=== PATIENT | female | born 1945 | race African-American/Black ===

== ENCOUNTER 2019-09-29 11:02 | Inpatient (IN) | payer MEDICARE ==
[~2019-09-29] VITALS: Ht 165.1 cm; Wt 96.8 kg
[~2019-09-29 11:02] MED LIST: ALLO300T2 PO; ASPI-1393 PO; ATOR20TA65 PO; ERGO500013 PO; NITR0.4T49 SL; OMEP40CA34 PO; POTA8TAB4 PO
[2019-09-29] MEDS ORDERED: ASPIRIN 81MG TABLET PO ONE (11:45)
[2019-09-29 11:57] LABS: BASOPHILS % 0.9 % (0.0-2.0); EOSINOPHILS % 1.8 % (0.0-5.0); HEMATOCRIT. 36.6 % (36.0-48.0); HEMOGLOBIN. 12.6 g/dL (12.0-16.0); LYMPHOCYTES % 19.5 % (20.0-50.0); MEAN CORPUSCULAR HEMOGLOBIN 33.3 pg (28.0-32.0); MEAN CORPUSCULAR VOLUME 96.8 fL (81.0-99.0); MEAN PLATELET VOLUME 9.1 fl (7.4-10.4); MONOCYTES % 4.6 % (2.0-8.0); NEUTROPHILS % 73.2 % (40.0-76.0); PLATELET 182 x1000/uL (130-400); RED BLOOD CELL COUNT 3.78 mill/uL (4.2-5.4)
[2019-09-29 12:03] LABS: CHLORIDE 109 mEq/L (98-107)
[2019-09-29 12:05] LABS: INR 1.1; PARTIAL THROMBOPLASTIN TIME 28.1 sec (23.4-31.0); PROTHROMBIN TIME 10.8 sec (9.6-11.0)
[2019-09-29] MEDS ORDERED: ENOXAPARIN 80MG/0.8ML SYR SUBCUT ONE (14:15)
[2019-09-29] MEDS ORDERED: NITROGLYCERIN OINT 1GM/INCH UDPKT TD ONE (14:15)
[2019-09-29] MEDS ORDERED: POTASSIUM CHLORIDE 20MEQ TABLET SR PO ONE (15:00)
[2019-09-29] MEDS ORDERED: CLONIDINE 0.1MG TABLET PO PRN (15:00)
[2019-09-29] MEDS ORDERED: HYDROCODONE/ACETAMINOPHEN 5/325MG TABLET PO PRN (16:15)
[2019-09-29] MEDS ORDERED: ONDANSETRON HCL 4MG/2ML INJ IV PRN (16:15)
[2019-09-29] MEDS ORDERED: IPRATROPIUM/ALBUTEROL 0.5-3(2.5)MG/3ML NEB NEB PRN (16:15)
[2019-09-29] MEDS ORDERED: ACETAMINOPHEN 325MG TABLET PO PRN (16:15)
[2019-09-29 21:00] VITALS: BP 143/69
[2019-09-29] MEDS: ATORVASTATIN CALCIUM 20MG TABLET PO SCH (22:35)
[2019-09-29] MEDS: AMLODIPINE 2.5MG TABLET PO SCH (22:35)
[2019-09-29] MEDS: ENOXAPARIN 30MG/0.3ML SYR SUBCUT SCH (22:36)
[2019-09-30] VITALS (16 sets, daily range): BP systolic 112–149; BP diastolic 58–91
[2019-09-30 00:25] LABS: CREATINE KINASE 103 IU/L (26-192)
[2019-09-30 00:26] LABS: CREATINE KINASE MB FRACTION 1.2 ng/mL (0.5-3.6)
[2019-09-30] MEDS: NITROGLYCERIN OINT 1GM/INCH UDPKT TD SCH ×2 (06:00→18:00)
[2019-09-30] MEDS ORDERED: SODIUM CHLORIDE 0.45% 1,000 ML IV SCH (07:00)
[2019-09-30 07:09] LABS: BASOPHILS % 1.1 % (0.0-2.0); EOSINOPHILS % 1.8 % (0.0-5.0); HEMOGLOBIN. 12.7 g/dL (12.0-16.0); LYMPHOCYTES % 21.6 % (20.0-50.0); MEAN CORPUSCULAR HEMOGLOBIN 32.8 pg (28.0-32.0); MEAN CORPUSCULAR VOLUME 95.4 fL (81.0-99.0); MEAN PLATELET VOLUME 10.2 fl (7.4-10.4); MONOCYTES % 5.8 % (2.0-8.0); NEUTROPHILS % 69.7 % (40.0-76.0); PLATELET 166 x1000/uL (130-400); RED BLOOD CELL COUNT 3.88 mill/uL (4.2-5.4)
[2019-09-30 08:01] LABS: CHLORIDE 107 mEq/L (98-107)
[2019-09-30 08:13] LABS: T4 FREE 1.11 ng/dL (0.76-1.46)
[2019-09-30 08:14] LABS: CREATINE KINASE MB FRACTION 1.4 ng/mL (0.5-3.6)
[2019-09-30 08:16] LABS: LDL CHOLESTEROL 65 mg/dL (5-100)
[2019-09-30 08:17] LABS: CREATINE KINASE 104 IU/L (26-192)
[2019-09-30 08:20] LABS: HDL CHOLESTEROL 48 mg/dL (40-59)
[2019-09-30] MEDS: AMLODIPINE 2.5MG TABLET PO SCH ×2 (08:50→22:01)
[2019-09-30] MEDS: ENOXAPARIN 30MG/0.3ML SYR SUBCUT SCH ×2 (08:50→20:48)
[2019-09-30] MEDS ORDERED: ASPIRIN/SOD BICARB/CITRIC ACID 324MG TAB EFF ONE (09:48)
[2019-09-30] MEDS ORDERED: LIDOCAINE HCL 1% 20ML VIAL (Pyxis) INJ ONE (09:53)
[2019-09-30] MEDS ORDERED: FENTANYL CITRATE/PF 50MCG/ML 2ML VIAL ONE (09:53)
[2019-09-30] MEDS ORDERED: MIDAZOLAM HCL 2 MG/2 ML VIAL ONE (09:53)
[2019-09-30] MEDS ORDERED: IODIXANOL 320MG/ML 100 ML BOTTLE IV ONE (09:54)
[2019-09-30] MEDS ORDERED: NITROGLYCERIN 50MCG/ML 10ML VIAL (CATH LAB) IV ONE (10:00)
[2019-09-30] MEDS ORDERED: HEPARIN SODIUM 1,000 UNIT/1ML VIAL IV ONE (10:00)
[2019-09-30] MEDS ORDERED: NICARDIPINE 100MCG/ML 10ML VIAL (CATH LAB) IV ONE (10:00)
[2019-09-30] MEDS ORDERED: IOHEXOL-300 100 ML BOTTLE ONE (10:56)
[2019-09-30] MEDS ORDERED: POTASSIUM CHLORIDE INJ 40 MEQ in DEXT 5% WATER 250 ML IV SCH (11:00)
[2019-09-30] MEDS ORDERED: ATROPINE SULFATE 0.1MG/ML 10ML DISP.SYRIN ONE (11:04)
[2019-09-30] MEDS ORDERED: CLOPIDOGREL 75MG TABLET ONE ×2 (11:21→11:25)
[2019-09-30] MEDS ORDERED: CLOPIDOGREL 75MG TABLET PO ONE (11:30)
[2019-09-30] MEDS ORDERED: ACETAMINOPHEN 325MG TABLET PO PRN (11:30)
[2019-09-30] MEDS ORDERED: ATROPINE SULFATE 1MG/10ML SYR IV PRN (11:30)
[2019-09-30] MEDS ORDERED: MORPHINE SULFATE 2 MG/ML CPJ (NOT FOR IM USE) IV PRN (11:30)
[2019-09-30] MEDS ORDERED: SODIUM CHLORIDE 0.45% 1,000 ML IV ONE (12:00)
[2019-09-30] MEDS ORDERED: CLOPIDOGREL 75MG TABLET PO NR ×2 (12:45→13:45)
[2019-09-30] MEDS ORDERED: POTASSIUM CHLORIDE 20MEQ TABLET SR PO NR (13:00)
[2019-09-30] MEDS: ONDANSETRON HCL 4MG/2ML INJ IV PRN (13:29)
[2019-09-30] MEDS: HYDROCODONE/ACETAMINOPHEN 5/325MG TABLET PO PRN ×2 (13:56→20:43)
[2019-09-30] MEDS: ATORVASTATIN CALCIUM 20MG TABLET PO SCH (20:40)
[2019-10-01] VITALS (13 sets, daily range): BP systolic 111–155; BP diastolic 56–98
[2019-10-01] MEDS: HYDROCODONE/ACETAMINOPHEN 5/325MG TABLET PO PRN (04:25)
[2019-10-01] MEDS: ONDANSETRON HCL 4MG/2ML INJ IV PRN (05:34)
[2019-10-01] MEDS: NITROGLYCERIN OINT 1GM/INCH UDPKT TD SCH ×3 (06:00→12:00)
[2019-10-01] MEDS ORDERED: PANTOPRAZOLE 40MG DR TABLET PO SCH (06:50)
[2019-10-01 07:09] LABS: BASOPHILS % 0.5 % (0.0-2.0); EOSINOPHILS % 0.4 % (0.0-5.0); HEMOGLOBIN. 13.3 g/dL (12.0-16.0); LYMPHOCYTES % 8.5 % (20.0-50.0); MEAN CORPUSCULAR HEMOGLOBIN 32.5 pg (28.0-32.0); MEAN CORPUSCULAR VOLUME 97.7 fL (81.0-99.0); MEAN PLATELET VOLUME 9.5 fl (7.4-10.4); MONOCYTES % 5.1 % (2.0-8.0); NEUTROPHILS % 85.5 % (40.0-76.0); PLATELET 180 x1000/uL (130-400)
[2019-10-01 07:57] LABS: CHLORIDE 101 mEq/L (98-107)
[2019-10-01] MEDS: ENOXAPARIN 30MG/0.3ML SYR SUBCUT SCH (08:30)
[2019-10-01] MEDS: AMLODIPINE 2.5MG TABLET PO SCH (08:32)
[2019-10-01] MEDS ORDERED: POTASSIUM CHLORIDE 20MEQ TABLET SR PO SCH ×2 (09:00→09:45)
[2019-10-01] MEDS ORDERED: ASPIRIN 325MG TABLET PO SCH (09:00)
[2019-10-01] MEDS ORDERED: CLOPIDOGREL 75MG TABLET PO SCH (09:00)
[2019-10-01 11:30] LABS: BG BASE EXCESS 1.2 mmol/L (-2.0-2.0); BG CARBOXYHEMOGLOBIN 0.3 % (0.5-1.5); BG DEOXYHEMOGLOBIN 6.1 % (0.0-5.0); BG FRACTION INSPIRED OXYGEN 21; BG HCO3 ACT 24.9 mmol/L (22.0-26.0); BG METHEMOGLOBIN 0.3 % (0.0-1.5); BG OXYGEN SATURATION 93.9 % (92.0-98.5); BG OXYHEMOGLOBIN 93.3 % (94.0-97.0); BG PCO2 36.7 mmHg (35.0-45.0); BG SAMPLE SITE RIGHT RADIAL; BG TOTAL HEMOGLOBIN 14.6 g/dL (12.0-18.0); BG VENT MODE ROOM AIR
[2019-10-01 13:14] LABS: CLARITY URINE CLEAR (CLEAR); COLOR URINE YELLOW (YELLOW); KETONES URINE NEGATIVE (NEGATIVE); LEUKOCYTE ESTERASE URINE 2+ (NEGATIVE); NITRITE URINE NEGATIVE (NEGATIVE); OCCULT BLOOD URINE NEGATIVE (NEGATIVE); PROTEIN URINE NEGATIVE (NEGATIVE); SPECIFIC GRAVITY URINE 1.012 (1.005-1.030)
[2019-10-01] MEDS ORDERED: AMLO2.5T2 PO (14:30)
[2019-10-01] MEDS ORDERED: ASPI-1160 MT (14:30)
[2019-10-01] MEDS ORDERED: ATOR20TA MT (14:30)
[2019-10-01] MEDS ORDERED: LEVO500T2 MT (14:30)
== END 2019-10-01 16:20 | disposition home or self-care (01) | DRG 247 ==
LOC: ER 11:02 → 8WST 13:38 → EDBEDREQ 13:43 → ENRESERV 19:12 → 3WST 09-30 14:33
PROVIDERS: ADMIT Internal Medicine; ATTEND Internal Medicine
PROC: 027034Z Dilation of Coronary Artery, One Artery with Drug-eluting Intraluminal Device, Percutaneous Approach (ICD-10-PCS; principal; 2019-09-30)
PROC: 4A023N7 Measurement of Cardiac Sampling and Pressure, Left Heart, Percutaneous Approach (ICD-10-PCS; 2019-09-30)
PROC: B2111ZZ Fluoroscopy of Multiple Coronary Arteries using Low Osmolar Contrast (ICD-10-PCS; 2019-09-30)
DX: T82.855A Stenosis of coronary artery stent, initial encounter (principal); I25.110 Atherosclerotic heart disease of native coronary artery with unstable angina pectoris; I50.32 Chronic diastolic (congestive) heart failure; N39.0 Urinary tract infection, site not specified; M10.9 Gout, unspecified; E66.9 Obesity, unspecified; E78.00 Pure hypercholesterolemia, unspecified; K21.9 Gastro-esophageal reflux disease without esophagitis; E87.6 Hypokalemia; E78.5 Hyperlipidemia, unspecified; E80.6 Other disorders of bilirubin metabolism; M19.90 Unspecified osteoarthritis, unspecified site; I11.0 Hypertensive heart disease with heart failure; Y83.8 Other surgical procedures as the cause of abnormal reaction of the patient, or of later complication, without mention of misadventure at the time of the procedure; Y92.89 Other specified places as the place of occurrence of the external cause; Z98.84 Bariatric surgery status; Z95.1 Presence of aortocoronary bypass graft; I25.2 Old myocardial infarction; Z68.35 Body mass index [BMI] 35.0-35.9, adult; Z79.82 Long term (current) use of aspirin; Z79.899 Other long term (current) drug therapy
CPT/HCPCS: 36415; 36600; 71045; 80048; 80061; 81003; 82375; 82550; 82553; 82805; 83036; 83735; 83880; 84439; 84443; 84484; 84550; 85379; 92928; 93005; 93306; 93458; 96372; 97162; 97535; 99285; C1725; C1769; C1874; C1887; C1893; J0461; J1644; J1650; J2250; J2405; J3010; J3480; J3490; J7060; Q9967

== ENCOUNTER 2019-12-17 15:15 | Emergency (ER) | payer SELFPAY ==
[~2019-12-17] VITALS: Ht 149.9 cm; Wt 90.0 kg
[~2019-12-17 15:15] MED LIST changes: +AMLO2.5T2 PO; +ASPI-1160 MT; -ASPI-1393 PO; +ATOR20TA MT; +LEVO500T2 MT; +OMEP40CA12 PO; -OMEP40CA34 PO
[2019-12-17 18:14] VITALS: BP 142/83
== END 2019-12-17 22:58 | disposition left against medical advice (07) ==
LOC: ER 15:15
DX: Z53.21 Procedure and treatment not carried out due to patient leaving prior to being seen by health care provider (principal)
CPT/HCPCS: 93005